=== PATIENT | female | born 1945 | race Caucasian/White ===

== ENCOUNTER → 2017-01-01 | Outpatient (CLI) | payer OTHER ==
[~2017-01-01] MED LIST: ADVAIR 250-501 EACH IH; ADVAIR 2501 DISK W/D PO; AFEDITAB; AFEDITAB CR30 MG PO; AL-MAG HYDROX-S30 M1 PO; ALBUTEROL 0.5ML INH; ALBUTEROL 2.5MG/3ML IH; ALBUTEROL17 GM INH; ALBUTEROL2.5 MG/0.5 IH; ALDACTONE25 MG PO; ALLERGY25 MG PO; AMIODARONE PO; ASPIRIN EC81 M1 PO; ASPIRIN PO; BACTRIM DS TABL1 TA1 PO; BENTYL10 MG PO; BENTYL20 MG PO; BUDESONIDE0.5 MG/2 M IH; CARDIZEM CD120 M1 PO; CARDIZEM30 M2 PO; CARDIZEM30 MG PO; CARVEDILOL12.5 MG PO; CARVEDILOL25 MG PO; CARVEDILOL6.25 MG PO; CELEBREX PO; CHEWABLE ASPIRI81 MG PO; CLEOCIN PO; COLACE PO; COMBIVENT RESPIM4 GM INH; COREG12.5 MG PO; COREG3.125 MG PO; COUMADIN PO; COUMADIN1 MG PO; CYMBALTA PO; DICYCLOMINE HCL10 MG PO; DIGOX0.25 MG PO; DILTIAZEM 24HR120 M1 PO; ELIQUIS5 MG PO; FAMOTIDINE PO; FUROSEMIDE40 MG PO; GABAPENTIN600 MG PO; GLUCOPHAGE XR500 MG PO; HYDRALAZINE HCL25 MG PO; HYDRALAZINE HCL50 MG PO; IMDUR-ER60 MG PO; KCL PO; KEPPRA250 MG PO; LANOXIN125 MCG PO; LASIX PO; LEVAQUIN750 M1 PO; LEVOFLOXACIN500 MG PO; LISINOPRIL10 MG PO; LISINOPRIL20 MG PO; LOPRESSOR PO; LOPRESSOR100 MG PO; LORTAB 101 TAB 10/5 DOB; MAG-OXIDE400 MG PO; METHIMAZOLE10 MG PO; METOPROLOL TAR25 MG PO; NEURONTIN PO; NEURONTIN100 MG PO; NEURONTIN600 MG PO; NOVOLOG7030 SUBQ; NYSTATIN5 ML PO; OMEPRAZOLE20 M1 PO; OMNICEF300 M1 PO; OXYCODON HCL-AP1 TA2 PO; PAIN RELIEF325 MG PO; PAIN RELIEF650 MG PO; PEPCID AC PO; PERCOCET 10/3251 TAB PO; PERCOCET10 PO; PERCOCET5/325 PO; PERFOROMIS20 MCG/2 M IH; PREDNISONE PO; PREDNISONE10 MG PO; PREDNISONE5 M1 PO; PROAIR HFA8.5 GM INH; PROBIOTIC250 MG PO; PROCARDIA XL PO; PROTONIX PO; PULMICORT0.5 MG/21 IH; SPIRIVA18 MCG INH; SUCRALFATE1 G/10 ML PO; SYMBICORT INH; SYNTHROID PO; TAPAZOLE10 MG PO; TOPROL XL 50 MG50 M1 PO; TYLENOL PM PO; TYLENOL325 M1 PO; ULORIC40 MG PO; VASOTEC10 MG PO; VICODIN 5/1 TAB 5/50 PO; ZOFRAN ODT4 M1 PO; ZOFRAN ODT4 MG PO; [UNRECOGNIZED DRUG - OTHER]; [UNRECOGNIZED DRUG - REMARK]
--- NOTE | ~2017-01-01 | CT57 ---
[facility] A Service of [facility] & [facility] / [facility] RADIOLOGY TEXT RESULTS PATIENT: MOHAN CENTENO [facility]: [facility] : 44 UNIT #: [id number] AGE: [address]: Hammad Han MD SEX: F ORDER DR: [id number] [facility] [address] [place], [place] [address] [id number] O MR#: [id number] [facility] #: [id number] NAME: MOHAN CENTENO. : 1945 SEX: F STUDY DATE/TIME: 01/01/2017 10:24 UNIT: [facility] ROOM: STUDY DESCRIPTION: CT Chest Wo Cont Attending Physician: Hammad Han M.D. Ordering Physician: Hammad Han M.D. Primary Care Physician: Emmanuel Atwood M.D. MEDICAL IMAGING REPORT This report is preliminary unless electronic signature is present EXAM CT chest without contrast, 01/01/2017 INDICATION Lung cancer. Shortness of air. Thoracic aortic aneurysm. Right upper lobe pulmonary malignancy. TECHNIQUE CT of the chest without contrast. Coronal and sagittal reconstructions were obtained. Please note the exam was changed to without contrast due to patient's overlying renal insufficiency (GFR 35). This CT exam was performed with one or more of the following radiation dose reduction techniques: automatic exposure control, adjustment of mA and/or kV according to patient size, and iterative reconstruction. COMPARISON Chest radiograph dated 12/04/2016. PET/CT dated 08/07/[address] chest dated 06/28/2016. FINDINGS The right upper lobe mass has decreased in size. This mass has a central cavitation on today's exam. This measures 3.7 cm x 3.2 cm compared to 6.4 cm x 4.7 cm on the prior exam. There are no new pulmonary opacities. There is background emphysema. Central airways are patent. Right upper lobe bronchi remain occluded. There are some borderline enlarged mediastinal lymph nodes. These are all stable in size compared with the prior exam. A precarinal lymph node previously showed FDG avidity. This measures approximately 1.4 cm short axis, unchanged from the prior exam (1.3 cm). [facility] A Service of [facility] & [facility] / [facility] RADIOLOGY TEXT RESULTS PATIENT: MOHAN CENTENO LOCATION: [facility] : 44 UNIT #: [id number] AGE: [address]: Hammad Han MD SEX: F ORDER DR: There is some diffuse aneurysmal enlargement of the descending thoracic aorta. The mid descending thoracic aorta measures up to 5.1 cm, unchanged. The distal thoracic aorta measures up to 5.7 cm, also unchanged. The distal thoracic aorta at the diaphragmatic hiatus measures 4.2 cm, unchanged. There is some low-attenuation thickening of the left adrenal gland which is unchanged. There is a benign cyst in the left kidney. The right kidney is atrophic. No new osseous abnormalities. IMPRESSION 1. Partial response to therapy. The right upper lobe mass has decreased in size and now has some central cavitation. 2. Borderline enlarged mediastinal lymph nodes are either stable to slightly decreased in size. 3. Diffuse fusiform aneurysm of the descending thoracic aorta is unchanged from the prior study. Dictated by... Jj Eli M.D. THIS IS AN ELECTRONICALLY VERIFIED REPORT Jj Eli M.D. at 01/02/2017 8:19 AM JALEN/darrion TD: 01/01/2017 21:31 JOB #: [id number] MEDICAL IMAGING REPORT COPY
[2017-01-01 10:15] LABS: POC - CREATININE 1.53 mg/dL (0.44-1.03)
== END | disposition home or self-care (01) ==
LOC: CCAT 09:08
PROVIDERS: Internal Medicine Medical Oncology
DX: C34.11 Malignant neoplasm of upper lobe, right bronchus or lung (principal); I71.2 Thoracic aortic aneurysm, without rupture
CPT/HCPCS: 71250; 82565

== ENCOUNTER → 2017-03-29 | Outpatient (CLI) | payer OTHER ==
--- NOTE | ~2017-03-29 | CT57 ---
[facility] A Service of [facility] RADIOLOGY TEXT RESULTS PATIENT: MOHAN CENTENO LOCATION: [facility] : 43 UNIT #: [id number] AGE: [address]: Hammad Han MD SEX: F ORDER DR: [id number] [facility] [address] [place], [place] [address] [id number] O MR#: [id number] [facility] #: [id number] NAME: MOHAN CENTENO. : 1945 SEX: F STUDY DATE/TIME: 03/29/2017 9:59 UNIT: [facility] ROOM: STUDY DESCRIPTION: CT Chest Wo Cont Attending Physician: Hammad Han M.D. Ordering Physician: Hammad Han M.D. Primary Care Physician: Emmanuel Atwood M.D. MEDICAL IMAGING REPORT This report is preliminary unless electronic signature is present EXAM CT chest without contrast DATE 03/29/2017 HISTORY 71-year-old female with history of lung cancer with last radiation therapy and chemotherapy treatments in 2014, per patient. Patient states no current complaints. Additional history of congestive heart failure, diabetes, hypertension and COPD. COMPARISON CT chest without contrast 01/01/2017, 06/28/2016. PROCEDURE 5 mm noncontrast axial images through the chest. Sagittal and coronal reformatted images were obtained. Study was originally requested with IV contrast, but IV contrast could not be administered secondary to the patient's impaired renal function (eGFR 38). This CT exam was performed with one or more of the following radiation dose reduction techniques: automatic control, adjustment of mA and/or kV according to patient size, and iterative reconstruction. FINDINGS Posterior right upper lobe mass lesion abutting the major fissure appears slightly diminished in size since 01/01/2017. On today's examination it measures approximately 3.7 x 2.2 cm compared to 3.7 x 3.2 cm previously. It has an eccentric cavitary component. It is significantly smaller when compared to the more remote 06/28/2016 examination, as well. In the coronal plane, it measures 2.8 cm today compared to 4 cm previously. No new pulmonary nodules are identified. Emphysematous changes are present [facility] A Service of [facility] RADIOLOGY TEXT RESULTS PATIENT: MOHAN CENTENO [id number] 43 UNIT #: [id number] AGE: [address]: Hammad Han MD SEX: F ORDER DR: with mild peripheral interstitial fibrosis in bilateral lower lobes and right middle lobe and inferior right upper lobe. Fusiform aneurysmal dilation of the thoracic aorta is redemonstrated, measuring approximately 4.4 cm in proximal descending segment, 5 cm in the mid descending segment, nearly 6 cm in the mid to distal descending segment. The eet-fs-ukjqhe descending thoracic aorta appears larger than on the 06/28/2016 exam where it measured 5.6 cm. The juxtarenal abdominal measures 4.3 cm, unchanged from prior. The descending thoracic aorta is very tortuous. Benign calcified granulomatous changes are present in the left hilum. Enlarged lymph node in the right precarinal region measures 1.5 x 1.2 cm and is not thought to be significantly changed. Other smaller right paratracheal lymph nodes are likewise thought to be stable. Presumed sebaceous cyst within the left anterior chest wall measuring 1 cm. Stable cardiac enlargement with pacemaker placed. Mild coronary artery calcifications noted. Right renal atrophy. Left renal cyst noted. Signs of ventral abdominal hernia repair. Diffuse enlargement of the left adrenal gland, unchanged. Right adrenal gland appears unremarkable. No acute or suspicious osseous abnormalities are identified. IMPRESSION 1. Positive response to therapy in comparison to the 01/01/[address] The right upper lobe lung mass has diminished in size. 2. Mediastinal adenopathy is stable. No new adenopathy. 3. Marked aneurysmal dilation of the descending thoracic aorta and abdominal aorta again noted. The distal descending thoracic aorta appears larger, now measuring 6 cm compared to 5.6 cm on the more remote 06/28/2016 CT chest. Vascular surgery consultation is suggested. 4. Enlargement of the left adrenal gland, unchanged. Adrenal metastatic disease not excluded. This is a stable finding. 5. Advanced emphysema. 6. Stable cardiomegaly. 7. Signs of ventral abdominal hernia repair, right renal atrophy, left renal cyst. Dictated by... Bess Pisano M.D. THIS IS AN ELECTRONICALLY VERIFIED REPORT Bess Pisano M.D. at 03/30/2017 8:27 AM [facility] A Service of [facility] RADIOLOGY TEXT RESULTS PATIENT: MOHAN CENTENO [facility] [id number] : 43 UNIT #: [id number] AGE: [address]: Hammad Han MD SEX: F ORDER DR: PAUL/rupertor TD: 03/29/2017 14:47 JOB #: [id number] MEDICAL IMAGING REPORT Page 1 of 1 COPY
[2017-03-29 10:16] LABS: POC - CREATININE 1.45 mg/dL (0.44-1.03)
== END | disposition home or self-care (01) ==
LOC: CCAT 09:04
PROVIDERS: Internal Medicine Medical Oncology
DX: C34.11 Malignant neoplasm of upper lobe, right bronchus or lung (principal); R59.0 Localized enlarged lymph nodes; I71.2 Thoracic aortic aneurysm, without rupture; E27.8 Other specified disorders of adrenal gland; J43.9 Emphysema, unspecified; N26.1 Atrophy of kidney (terminal); N28.1 Cyst of kidney, acquired; I51.7 Cardiomegaly; Z98.890 Other specified postprocedural states
CPT/HCPCS: 71250; 82565

== ENCOUNTER 2017-04-15 21:26 | Inpatient (IN) | payer OTHER ==
--- NOTE | ~2017-04-15 | CT71 ---
[facility] A Service of [facility] RADIOLOGY TEXT RESULTS PATIENT: MOHAN CENTENO LOCATION: [facility] : 43 UNIT #: [id number] AGE: [address]: Emmanuel Atwood MD SEX: F ORDER DR: [id number] [facility] [address] [place], [place] [address] [id number] I MR#: [id number] Acc #: [id number] NAME: MOHAN CENTENO. : 1945 SEX: F STUDY DATE/TIME: 04/15/2017 2321 UNIT: [facility] ROOM: [facility] STUDY DESCRIPTION: CT Head Wo Contrast Attending Physician: Emmanuel Atwood M.D. Ordering Physician: Lance Jacobs M.D. Primary Care Physician: No Primary Care Physician MEDICAL IMAGING REPORT This report is preliminary unless electronic signature is present EXAM Head CT, 04/15, 2321 hours. INDICATION Increasing confusion and generalized weakness for 2 days. TECHNIQUE Axial images were obtained from the base to the vertex without contrast. This CT exam was performed with one or more of the following radiation dose reduction techniques: automatic exposure control, adjustment of mA and/or kV according to patient size, and iterative reconstruction. COMPARISON Comparison made with 09/11/2016. FINDINGS There is generalized atrophy. Ventricular size and configuration are stable. Bilateral chronic basal ganglia infarcts are seen. Chronic small vessel ischemic changes are present in the white matter. No acute infarct or hemorrhage identified. There are no masses. Atherosclerotic calcifications noted in the carotid siphons. No skull fracture. IMPRESSION No acute abnormalities. Stable exam from 09/11/2016. Dictated by... Paul Thomas Jr., M.D. THIS IS AN ELECTRONICALLY VERIFIED REPORT [facility] A Service of [facility] RADIOLOGY TEXT RESULTS PATIENT: MOHAN CENTENO LOCATION: [facility] : 43 UNIT #: [id number] AGE: [address]: Emmanuel Atwood MD SEX: F ORDER DR: Paul Thomas Jr., M.D. at 04/16/2017 9:14 PM TOMASA/ashley TD: 04/16/2017 09:59 JOB #: [id number] MEDICAL IMAGING REPORT Page 1 of 1 COPY
--- NOTE | ~2017-04-15 | CO ---
Unit #: [id number] #: [id number] Patient: MOHAN CENTENO [id number] [address] [place], [place] [address] [id number] I MR#: [id number] NAME: MOHAN CENTENO ROOM: 555 Age: 71 Sex: F Admission Date: 04/16/2017 : 1945 Attending Physician: Emmanuel Atwood M.D. Consultation Date: 04/16/2017 CONSULTATION REPORT REASON FOR CONSULTATION Renal insufficiency. Thank you very much for asking me to see this patient in consultation again. HISTORY OF PRESENT ILLNESS Ms. Torrey Centeno is a 71-year-old female with a history of chronic kidney disease, stage 3 with creatinine in the 1 to 1.2 range, who presented to the hospital apparently not getting out of bed for the last 3 to 4 days, decreased p.o. intake. Upon admission, note to have creatinine was up to 1.6 with a possible UTI. Started on Rocephin and we were asked to see the patient. She was started on IV fluids as well, normal saline at 75. She apparently had increased confusion with negative CT of the head. She today is alert, but little confused. Daughters at bedside. Mainly, the issues daughter states she has had severe pain and when asking she said well she has had it for months, but the real issue apparently brought in by her for the decreased intake, not getting out of bed, and worsening mental status. The patient states she has chronic shortness of breath, nothing new. No chest pain currently. She denies any nausea, vomiting, or diarrhea. She states she is hungry currently. PAST MEDICAL HISTORY Extensive including chronic kidney disease, stage 3, creatinine in 1 to 2 range most likely; history of diabetes mellitus; history of congestive heart failure with decreased EF of 25%; history of mitral regurg and tricuspid regurg; history of pulmonary hypertension; history of atrial fibrillation, on chronic Coumadin; history of descending thoracic aortic aneurysm; history of peripheral vascular disease; history of hypothyroidism; history of COPD; history of lung CA; history of postherpetic neuralgia; history of ITP; history of irritable bowel syndrome; history of chronic anemia. She is status post AICD, status post hysterectomy, status post multiple ventral hernias. SOCIAL HISTORY She still smokes. Lives with her . No alcohol. ALLERGIES Include adhesive tape, Wellbutrin, Lipitor, naproxen, Lyrica. FAMILY HISTORY Negative for any kidney disease. REVIEW OF SYSTEMS Unit #: [id number] #: [id number] Patient: MOHAN CENTENO As mentioned in the HPI, otherwise negative. MEDICATIONS At home include aspirin 81 mg a day; Percocet p.r.n. for pain; inhalers; Coumadin 1.5 mg a day; Synthroid 88 mcg a day; Aldactone 25 mg a day, which is on hold; Zofran; Lasix 40 mg b.i.d., which is on hold; Combivent inhalers; Coreg 25 mg b.i.d., although that dose was questionable changed to 3.125 mg b.i.d.; Pepcid 20 mg a day; probiotics daily; Uloric normally 80 mg a day, but that dose has been changed to 40 mg a day. PHYSICAL EXAMINATION GENERAL: She is alert, but confused. VITAL SIGNS: T-max 101.5, pulse 66 to 137, blood pressure is 102 to 148 over 70 to 102. HEENT: She is normocephalic and atraumatic. Pupils are equal, round, and reactive to light. Extraocular muscles are intact. Hearing appears to be normal. Mouth clear. No erythema. No exudate. NECK: Supple. No adenopathy. CARDIAC: She is without a rub. She has no S3 or S4. Currently irregular. LUNGS: She has a few wheezes. No rales. No rhonchi. ABDOMEN: Bowel sounds positive. Mild diffuse tenderness. No rebound or guarding. EXTREMITIES: She has no lower extremity swelling. Her pulses are intact in upper and lower extremities. JOINTS: No joint pain or joint swelling. SKIN: No acute rash except for some bruising. : Deferred. DIAGNOSTIC STUDIES LABORATORY RESULTS: Again, creatinine 1.6 yesterday. Today, sodium is 141, potassium 3.5, chloride is 106, bicarb 20, BUN 54, creatinine 1.3, glucose 99, calcium is 8.2, lactic acid 1.3, TSH 2.01. INR is 2.1. Hemoglobin is 12, white count 11,700, platelets 93,000. Her UA shows specific gravity of 1.016, 1+ protein, 2 to 5 rbc's, 100 to 200 wbc's, positive bacteria. Culture is pending. IMAGING STUDIES: CT of the head is negative. Chest x-ray was negative. ASSESSMENT AND PLAN 1. Acute on probable chronic kidney disease, stage 3. Renal function is improving already. The patient most likely had volume depletion as the etiology of her acute renal insufficiency and improving with volume. Certainly, I agree with holding her Aldactone and Lasix for now. Certainly at some point, we will need to re-add that, consider lower dose, depending on her oral intake is, but we will watch for failure, but continue normal saline at 75 mL an hour. We will mildly hydrate. We will check a bladder scan for postvoid residual to make sure she did not have some component of urinary retention. We will add magnesium and phosphorus to a.m. labs ordered in the morning and we will just follow and depending on how she does, depending on any further workup and treatment. Certainly, would avoid all nonsteroidals, OAKLEY-2 inhibitor, long-term PPIs, other contrast dye, and other nephrotoxins. 2. Probable urinary tract infections. Await culture results, on Rocephin. 3. Chronic obstructive pulmonary disease. 4. Diabetes mellitus. 5. History of congestive heart failure with decreased ejection fraction. Again, hold diuretics for now. She does not appear to be in any heart failure at this time. Unit #: [id number] #: [id number] Patient: MOHAN CENTENO 6. Hypertension. Dictated by.Kalie Ansari M.D. KAREN/segun TD: 04/16/2017 15:46 JOB #: [id number] CONSULTATION REPORT Page 1 of 1 X Rosario Ansari MD CONSULTATION REPORT
--- NOTE | ~2017-04-15 | DS ---
Unit #: [id number] #: [id number] Patient: MOHAN CENTENO [id number] [address] [place], [place] [address] [id number] MR#: [id number] NAME: MOHAN CENTENO. ROOM: 555 Age: 71 Sex: F Admission Date: 04/16/2017 : 1945 Discharge Date: 04/20/2017 Attending Physician: Emmanuel Atwood M.D. Primary Care Physician: No Primary Care Physician DISCHARGE SUMMARY PRINCIPAL DISCHARGE DIAGNOSES 1. Acute mental status changes, i.e. delirium secondary to urinary tract infection. 2. Escherichia coli urinary tract infection. 3. Chronic atrial fibrillation. 4. Chronic anticoagulation therapy. 5. Diet controlled type 2 diabetes mellitus. 6. Chronic obstructive pulmonary disease. 7. Chronic systolic congestive heart failure. 8. Hypothyroidism. 9. Coronary artery disease. 10. Peripheral arterial disease. 11. Thoracic aortic aneurysm. 12. Abdominal aortic aneurysm. 13. Non-small cell carcinoma, right upper lobe of the lung. 14. Acute on chronic kidney disease stage 3. 15. Gout. 16. Idiopathic thrombocytopenic purpura. PROCEDURES None. CONSULTANTS Dr. Asnari - Nephrology. REASON FOR HOSPITALIZATION The patient is a 71-year-old white female brought to the emergency room with altered mental status, apparently not been out of bed for three days. In the ER, she was evaluated and had some worsening kidney function, had evidence of UTI and was admitted. On admission, she was afebrile but apparently had a temp of 101.5 at home. Lactic acid was normal. Cardiac enzymes normal. PT/INR was slightly low at 1.9. White count 15.9 with a left shift. Ammonia level, amylase and lipase normal. Magnesium normal. CPK normal. Creatinine 1.3, GFR 31.9. Urinalysis - 3+ leukocytes with 1+ blood, 100-200 white cells per high power field, 4+ bacteria. TSH normal. Patient admitted, started on IV Rocephin. Culture sent. Urine culture grew E. coli sensitive to Rocephin. Switched to cefdinir yesterday. Blood cultures - no growth to date. Coumadin adjusted. Protime therapeutic in the past two days. BMP this morning is normal except for GFR of 56. CBC this morning is normal except for a hemoglobin of 11 and a platelet count of 103,000. Two view chest x-ray yesterday showed some opacity in the lower right thorax but no active disease. Immunofixation sent during this admission showed no abnormal bands. CT scan of the abdomen and pelvis showed no acute findings. There was an uncomplicated Unit #: [id number] #: [id number] Patient: MOHAN CENTENO sigmoid diverticulosis, unchanged thoracic and abdominal aortic aneurysm with a distal descending thoracic aneurysm of nearly 6 cm. Moderate right renal atrophy. Uncomplicated cholelithiasis. Pessary device in place, status post hysterectomy. In any case, the patient is stable. She is on a regular diet. She is being discharged home with: 1. A prescription for cefdinir 300 mg, one p.o. b.i.d. #10. 2. She is on Symbicort 160/4.5 two puffs q.12. 3. Combivent Respimat one puff q.i.d. 4. Zofran ODT 4 mg q.i.d. p.r.n. 5. Coumadin 2 mg p.o. daily. 6. Furosemide 40 mg daily. 7. Pepcid 20 mg daily. 8. Probiotic 250 mg b.i.d. 9. Aspirin, enteric coated, 81 mg daily. 10. Percocet 10/325, one half p.o. q.i.d. p.r.n. for pain. 11. Aldactone 25 mg daily. 12. Synthroid 88 mcg daily. 13. Uloric 80 mg daily. She will have a protime in my office on Sunday, the . She is on a regular diet. She will have an office visit in one week. Dictated by... Emmanuel Atwood M.D. Zakia TD: 04/20/2017 12:22 JOB #: [id number] DISCHARGE SUMMARY Page 1 of 1 X Emmanuel Atwood MD X DISCHARGE SUMMARY
--- NOTE | ~2017-04-15 | CT4 ---
[facility] A Service of [facility] RADIOLOGY TEXT RESULTS PATIENT: MOHAN CENTENO LOCATION: [facility] [id number] : 44 UNIT #: [id number] AGE: [address]: Emmanuel Atwood MD SEX: F ORDER DR: [id number] [facility] [address]. [place], [place] [address] [id number] I MR#: [id number] Acc #: [id number] NAME: MOHAN CENTENO. : 1945 SEX: F STUDY DATE/TIME: 04/17/2017 20:19 UNIT: [facility] ROOM: [facility] STUDY DESCRIPTION: CT Abd and Pelv Wo Cont Attending Physician: Emmanuel Atwood M.D. Ordering Physician: Emmanuel Atwood M.D. Primary Care Physician: Primary Care Physician No MEDICAL IMAGING REPORT This report is preliminary unless electronic signature is present EXAM CT abdomen and pelvis without contrast DATE 04/17/2017 HISTORY New onset confusion, right lower quadrant pain and urinary tract infection for [address] abdomen and pelvis without contrast 10/08/2016. PROCEDURE 5 mm axial images from the lung bases through the lesser trochanters after enteric contrast only was administered. IV contrast not administered. Sagittal and coronal reformatted images were obtained. This CT exam was performed with one or more of the following radiation dose reduction techniques: Automatic exposure control, adjustment of mA and/or kV according to patient size, and iterative reconstruction. FINDINGS ABDOMEN FINDINGS: The distal descending thoracic aorta is tortuous and is aneurysmal up to 6 cm transversely, compared to 5.8 cm on previous exam. The upper abdominal aorta is likewise tortuous. The aorta at the level of the diaphragmatic hiatus measures 4.1 cm, not significantly changed. The immediate infrarenal abdominal aortic segment measures 4.2 cm, unchanged. The [id number] infrarenal abdominal aorta measures 4.2 cm, not significantly changed. There is dense calcific atherosclerosis within the bilateral common iliac arteries. Emphysematous changes are present in the lung bases without consolidation. There are signs of ventral abdominal wall hernia repair without hernia STS. [facility] A Service of [facility] RADIOLOGY TEXT RESULTS PATIENT: MOHAN CENTENO LOCATION: [facility] [id number] : 44 UNIT #: [id number] AGE: [address]: Emmanuel Atwood MD SEX: F ORDER DR: recurrence. Gallstones are present without pericholecystic inflammation or biliary dilation. Noncontrast appearance of the liver, spleen, pancreas, right adrenal are normal. Left adrenal hyperplasia unchanged. Left adrenal gland demonstrates low density and may represent some underlying adenomatous change, as well. There is trace left pleural effusion. Moderately advanced right renal atrophy. Cyst in the posterior left mid kidney measures 2.2 cm (Hounsfield units 5.5). Diverticular changes are present in the descending and sigmoid colon without evidence of acute diverticulitis. There is moderate colonic stool burden. No evidence of high-grade large or small bowel obstruction. No ureteral stone or hydronephrosis is seen. PELVIS FINDINGS: Hysterectomy with pessary device in place. Suspected small enterocele extending to the right of midline posteriorly. Mild anterolisthesis L4 upon L5, mild retrolisthesis L2 upon L3, unchanged. No acute osseous abnormalities are identified. IMPRESSION 1. No acute findings are appreciated within the abdomen or pelvis. The appendix is not discretely visualized but no pericecal inflammation is seen. There is moderate colonic stool burden. 2. Uncomplicated sigmoid diverticulosis without evidence of acute diverticulitis. 3. Thoracic and abdominal aortic aneurysm not thought to be significantly changed. The distal descending thoracic aortic aneurysm measures nearly 6 cm. 4. Trace left pleural effusion. 5. Not mentioned in the body of the report, there is trace fluid in the left paracolic gutter of uncertain etiology. No drainable fluid collection or abscess is seen. 6. Emphysema. 7. Moderate right renal atrophy and left renal cyst. 8. Uncomplicated cholelithiasis. 9. Suspected small enterocele extending to the right of midline posteriorly. Pessary device in place. 10. Hysterectomy. Dictated by... Bess Pisano M.D. THIS IS AN ELECTRONICALLY VERIFIED REPORT Bess Pisano M.D. at 04/18/2017 10:40 AM [facility]/renetta TD: 04/18/2017 03:02 [facility] A Service of [facility] RADIOLOGY TEXT RESULTS PATIENT: MOHAN CENTENO LOCATION: [id number] 43 UNIT #: [id number] AGE: [address]: Emmanuel Atwood MD SEX: F ORDER DR: TIM #: [id number] MEDICAL IMAGING REPORT Page 1 of 1 COPY
--- NOTE | ~2017-04-15 | EKG ---
PATIENT: MOHAN CENTENO UNIT #: [id number] Ventricular Rate: 136 BPM Atrial Rate: 100 BPM QRS Duration: 76 ms Q-T Interval: 352 ms QTC Calculation(Bezet): 529 ms Calculated R [place]: -34 degrees Calculated T [place]: 125 degrees Diagnosis Line: Atrial fibrillation with rapid ventricular Diagnosis Line: response Diagnosis Line: Left axis deviation Diagnosis Line: Low voltage QRS Diagnosis Line: Nonspecific ST and T wave abnormality Diagnosis Line: Abnormal ECG Diagnosis Line: No new changes Diagnosis Line: Confirmed by SANDY MARTÍNEZ MD ([id number]) on Diagnosis Line: 04/16/2017 4:49:26 PM INTERPRETING MD: WANDA
--- NOTE | ~2017-04-15 | CR72 ---
[facility] A Service of [facility] RADIOLOGY TEXT RESULTS PATIENT: MOHAN CENTENO LOCATION: [facility] : 44 UNIT #: [id number] AGE: [address]: Emmanuel Atwood MD SEX: F ORDER DR: [id number] [facility] [address] [facility]. [place], [place] [address] [id number] I MR#: [id number] Acc #: [id number] NAME: MOHAN CENTENO. : 1945 SEX: F STUDY DATE/TIME: 04/15/20172148 UNIT: [facility] ROOM: [facility] STUDY DESCRIPTION: CR Chest Single View Portable Attending Physician: Emmanuel Atwood M.D. Ordering Physician: Lance Jacobs M.D. Primary Care Physician: No Primary Care Physician MEDICAL IMAGING REPORT This report is preliminary unless electronic signature is present EXAM Portable chest, 2148. INDICATION Mental status changes today. Patient incoherent and uncooperative. Patient has cough, congestion, and fever for 2 days. TECHNIQUE AP portable chest x-ray compared with 12/04/2016. COMPARISON Comparison is also made with chest CT from 03/29/2017. FINDINGS Patient is rotated on the current study. Heart remains enlarged. Again seen is massive dilatation and tortuosity of the thoracic aorta. No acute infiltrates are identified. There is no pneumothorax. Granulomatous calcification is noted in the left hilum. IMPRESSION No acute findings in the chest. Redemonstrated is a massively dilated thoracic aorta which is also tortuous. Please see the recent prior chest CT report from 03/29/2017. Dictated by... Paul Thomas Jr., M.D. THIS IS AN ELECTRONICALLY VERIFIED REPORT Paul Thomas Jr., M.D. at 04/16/2017 9:13 PM ELIASK/ashley [facility] A Service of [facility] RADIOLOGY TEXT RESULTS PATIENT: MOHAN CENTENO [id number] UNIT #: [id number] AGE: [address]: Emmanuel Atwood MD SEX: F ORDER DR: TD: 04/16/2017 09:20 JOB #: [id number] MEDICAL IMAGING REPORT Page 1 of 1 COPY
--- NOTE | ~2017-04-15 | HP ---
Unit #: [id number] #: [id number] Patient: MOHAN CENTENO [id number] [address] [place], [place] [address] [id number] I MR#: [id number] NAME: MOHAN CENTENO. ROOM: 555 Age: 71 Sex: F Admission Date: 04/16/2017 : 1945 Attending Physician: Emmanuel Atwood M.D. Primary Care Physician: No Primary Care Physician HISTORY AND PHYSICAL HISTORY OF PRESENT ILLNESS 71-year-old white female who is a poor historian, generally speaking. Apparently, she was brought to the emergency room by EMS after having altered mental status and had not gotten out of bed for three days, according to her . In the ER, she was evaluated and had some worsening kidney function and evidence of a UTI and was admitted for same. She was febrile there at 101.5, had an elevated white count. Lactic acid was normal. The rest of her labs were fairly unremarkable. The patient is arousable, complaining of chills this morning. She is oriented to person and place but not time, which I don't think is probably unusual for this patient in any regards. ALLERGIES She has stated allergies to adhesive tape, Wellbutrin, Lipitor, Naprosyn, Lyrica. MEDICATIONS Meds prior to admission unknown but include: 1. Aspirin. 2. Percocet. 3. Symbicort. 4. Coumadin. 5. Synthroid. 6. Aldactone. 7. Zofran. 8. Furosemide. 9. Combivent. 10. Coreg. 11. Uloric. PAST MEDICAL HISTORY 1. Chronic A-fib. 2. Sick sinus syndrome. 3. Permanent pacemaker. 4. Chronic anticoagulation therapy. 5. Chronic systolic CHF. 6. Severe left ventricular dysfunction. 7. Automatic implantable cardioverter defibrillator. 8. Coronary artery disease. 9. Thoracic aortic aneurysm. 10. Abdominal aortic aneurysm. 11. Type 2 diabetes mellitus. 12. Hypothyroidism. 13. COPD. Unit #: [id number] #: [id number] Patient: MOHAN CENTENO 14. Tobacco abuse. 15. Postherpetic neuralgia. 16. ITP. 17. Hypertension. 18. Chronic anemia. 19. Irritable bowel syndrome. 20. Non-small cell CA of the right upper lobe. PAST SURGICAL HISTORY 1. AICD. 2. Pacemaker. 3. Hysterectomy. 4. Bilateral carpal tunnel release. 5. Multiple ventral hernia repairs. 6. Left inguinal hernia repair. SOCIAL HISTORY , nondrinker. No street drug use. Smokes two packs of cigarettes daily. FAMILY HISTORY Noncontributory. PHYSICAL EXAMINATION VITAL SIGNS: Again, her temperature was 101.5 in the emergency room, pulse is 137 now 88, respirations 28 now 18, blood pressure was 121/101 now 114/78. O2 sat was 94% in the ER but for some reason she is on O2 at 97% now at 2 L. HEENT: Unremarkable. NECK: Supple without JVD, bruits, adenopathy or thyromegaly. CHEST: Diffusely decreased breath sounds but clear to auscultation. HEART: Irregularly irregular without an S3 gallop or murmur appreciated. ABDOMEN: Soft, nondistended, nontender with positive bowel sounds and no hepatosplenomegaly. EXTREMITIES: No clubbing, cyanosis or edema. /RECTAL: Deferred. NEUROLOGICAL: No focal deficits. DIAGNOSTIC STUDIES LABORATORY: Cardiac enzymes normal x2 sets. PT/INR 1.8, PTT 36.9, white count 15.9 with a left shift. Lactic acid normal, ammonia normal. Amylase and lipase normal, magnesium normal. CPK normal. Sodium 134, BUN 63, creatinine 1.6, GFR 31.9. Urinalysis - 3+ leukocytes, 1+ blood, 100-200 WBCs per high power field, 4+ bacteria. TSH within normal limits. IMPRESSION 1. Delirium. 2. Urinary tract infection. 3. Acute on chronic kidney disease. 4. Gout. 5. Chronic systolic congestive heart failure. 6. Chronic atrial fibrillation. 7. Sick sinus syndrome. 8. Status post automatic implantable cardioverter defibrillator Unit #: [id number] #: [id number] Patient: MOHAN CENTENO permanent pacemaker. 9. Subtherapeutic protime. 10. Thoracic aortic aneurysm. 11. Abdominal aortic aneurysm. 12. Chronic obstructive pulmonary disease. 13. Hypothyroidism. 14. History of idiopathic thrombocytopenic purpura. 15. Peripheral arterial disease. 16. Coronary artery disease. 17. Type 2 diabetes mellitus. 18. History of non-small cell carcinoma of the right lung. PLAN Urine culture, IV fluids, IV antibiotics. Coreg as home Med Rec. Increase dose of Coumadin, cover with Lovenox. Nephrology has been consulted for the worsening renal function. She has been started on normal saline at 75 mL/hour. Will hold her diuretics and follow her labs. Dictated by Emmanuel Atwood M.D. STACEY/emily TD: 04/16/2017 08:14 JOB #: [id number] HISTORY AND PHYSICAL Page 1 of 1 X Emmanuel Atwood MD X HISTORY AND PHYSICAL
--- NOTE | ~2017-04-15 | CR63 ---
[facility] A Service of [facility] RADIOLOGY TEXT RESULTS PATIENT: MOHAN CENTENO LOCATION: [facility] 555-01 : 44 UNIT #: [id number] AGE: [address]: Emmanuel Atwood MD SEX: F ORDER DR: [id number] [facility] [address] [facility]. [place], [place] [address] [id number] I MR#: [id number] Acc #: [id number] NAME: MOHAN CENTENO. : 1945 SEX: F STUDY DATE/TIME: 04/18/2017 14:22 UNIT: [facility] ROOM: [facility] STUDY DESCRIPTION: CR Chest 2 View Attending Physician: Emmanuel Atwood M.D. Ordering Physician: Emmanuel Atwood M.D. Primary Care Physician: No Primary Care Physician MEDICAL IMAGING REPORT This report is preliminary unless electronic signature is present EXAM Two-view chest HISTORY Chest pain, weakness since 04/16/2017. History of UTI. COMPARISON Portable chest 04/15/2017 FINDINGS Two views of the chest demonstrates moderate lung volumes. Opacity is seen over the lower right thorax at the CP angle. It is unclear whether this represents overlying soft tissue as the patient's hand appears to project in this region. This could represent a developing pleural effusion. Mid and upper lung zones are clear. Stable cardiomegaly. Marked tortuosity of the aorta suggesting atherosclerotic changes and possible aneurysmal disease. Recent chest CT did confirm diffuse thoracic aneurysm. Single lead pacemaker in position unchanged. No pneumothorax. No definite acute airspace disease or consolidation. Dictated by... Aicha Gutierrez M.D. THIS IS AN ELECTRONICALLY VERIFIED REPORT Aicha Gutierrez M.D. at 04/19/2017 2:43 PM Dev TD: 04/18/2017 16:04 JOB #: [id number] MEDICAL IMAGING REPORT Page 1 of 1 COPY
[~2017-04-15 21:26] MED LIST changes: -LASIX PO; -OMNICEF300 M1 PO
[2017-04-15 22:57] LABS: BASOPHIL# 0.1 X10e3 (0-0.3); BASOPHIL% 0.4 % (0-2.5); EOSINOPHIL% 0.1 % (0.0-7.0); HEMATOCRIT 42.4 % (35.0-45.0); HEMOGLOBIN 13.3 gm/dL (12.0-16.0); LYMPHOCYTE# 0.6 X10e3 (1.0-3.5); LYMPHOCYTE% 3.6 % (17.0-45.0); MEAN CELL VOLUME 89.2 FL (83-96); MEAN CORPUSCULAR HEMOGLOBIN 28.1 PG (28-34); MEAN CORPUSCULAR HGB CONC 31.4 g/dL (30-36); MEAN PLATELET VOLUME 8.6 FL (6.5-11.5); MONOCYTE# 1.7 X10e3 (0-1.0); MONOCYTE% 10.4 % (3.0-12.0); NEUTROPHIL# 13.6 X10e3 (1.5-7.1); NEUTROPHIL% 85.5 % (40-75); PLATELET COUNT 140 X10e3 (140-420); RED BLOOD COUNT 4.75 X10e (3.90-5.30); WHITE BLOOD COUNT 15.9 X10e3 (4.0-10.5)
[2017-04-15 22:58] LABS: INR 1.8; PARTIAL THROMBOPLASTIN TIME 36.9 SECONDS (23.5-31.3); PROTHROMBIN TIME (PATIENT) 19.4 SECONDS (10.0-11.7)
[2017-04-15 23:00] LABS: DIFF IND YES
[2017-04-15 23:19] LABS: PLATELET ESTIMATE NORMAL (NORMAL)
[2017-04-15 23:51] LABS: URINE SOURCE CLEAN CATCH
[2017-04-15 23:59] LABS: URINE APPEARANCE CLOUDY; URINE BILIRUBIN NEG (NEG); URINE BLOOD 1+ (NEG); URINE COLOR YELLOW; URINE GLUCOSE NEG (NEG); URINE KETONE NEG (NEG); URINE LEUKOCYTE ESTERASE 2+ (NEG); URINE NITRATE NEG (NEG); URINE PROTEIN 1+ (NEG); URINE SPECIFIC GRAVITY 1.016 (1.003-1.035)
[2017-04-16 00:01] LABS: CULTURE INDICATED? YES; URINE BACTERIA AUWI 4+ (NEGATIVE); URINE SQUAMOUS EPITHELIAL CELL NONE SEEN /[HPF]; UWBCS1 AUWI 100-200 (0-5)
[2017-04-16 00:05] LABS: ALBUMIN SERUM 3.1 g/dL (3.5-5.0); BILIRUBIN, DIRECT 0.1 mg/dL (0.0-0.2); BILIRUBIN,INDIRECT 0.6 mg/dL (0.0-0.9); BILIRUBIN,TOTAL 0.7 mg/dL (0.2-2.0); BUN/CREATININE RATIO 39.37; CALCIUM SERUM 8.1 mg/dL (8.4-10.2); CREATININE SERUM 1.6 mg/dL (0.6-1.4); GLOM FILT RATE Estimated 31.9 mL/min (>60); MAGNESIUM 2.1 mg/dL (1.6-3.0); PHOSPHOROUS 4.6 mg/dL (2.5-4.6); POTASSIUM 3.7 mmol/L (3.5-5.1); PROTEIN TOTAL SERUM 6.7 g/dL (6.0-8.3)
[2017-04-16 00:35] LABS: POC - CKMB <1.0 ng/mL (0.0-7.9); POC - TROPONIN <0.05 ng/mL (<=0.05)
[2017-04-16 01:01] LABS: POC - CKMB <1.0 ng/mL (0.0-7.9); POC - TROPONIN <0.05 ng/mL (<=0.05)
[2017-04-16 09:53] LABS: HEMATOCRIT 38.1 % (35.0-45.0); MEAN CELL VOLUME 89.7 FL (83-96); MEAN CORPUSCULAR HEMOGLOBIN 28.2 PG (28-34); MEAN CORPUSCULAR HGB CONC 31.5 g/dL (30-36); MEAN PLATELET VOLUME 8.1 FL (6.5-11.5); RED BLOOD COUNT 4.25 X10e (3.90-5.30); RED CELL DISTRIBUTION WIDTH 14.1 % (11.0-15.5); WHITE BLOOD COUNT 11.7 X10e3 (4.0-10.5)
[2017-04-16 10:03] LABS: INR 2.1; PROTHROMBIN TIME (PATIENT) 22.7 SECONDS (10.0-11.7)
[2017-04-16 10:20] LABS: BUN/CREATININE RATIO 41.53; CALCIUM SERUM 8.2 mg/dL (8.4-10.2); CREATININE SERUM 1.3 mg/dL (0.6-1.4); POTASSIUM 3.5 mmol/L (3.5-5.1)
[2017-04-17 06:31] LABS: INR 3.8
[2017-04-17 06:32] LABS: HEMATOCRIT 32.9 % (35.0-45.0); HEMOGLOBIN 10.5 gm/dL (12.0-16.0); MEAN CELL VOLUME 88.9 FL (83-96); MEAN CORPUSCULAR HEMOGLOBIN 28.3 PG (28-34); MEAN CORPUSCULAR HGB CONC 31.8 g/dL (30-36); MEAN PLATELET VOLUME 8.4 FL (6.5-11.5); PROTHROMBIN TIME (PATIENT) 41.4 SECONDS (10.0-11.7); RED BLOOD COUNT 3.7 X10e (3.90-5.30); RED CELL DISTRIBUTION WIDTH 14.2 % (11.0-15.5); WHITE BLOOD COUNT 7.4 X10e3 (4.0-10.5)
[2017-04-17 07:08] LABS: BUN/CREATININE RATIO 28.33; CREATININE SERUM 1.2 mg/dL (0.6-1.4); GLOM FILT RATE Estimated 45.1 mL/min (>60); MAGNESIUM 1.9 mg/dL (1.6-3.0); PHOSPHOROUS 2.3 mg/dL (2.5-4.6); POTASSIUM 3.5 mmol/L (3.5-5.1)
[2017-04-17 16:57] LABS: CREATININE,RANDOM URINE 64 mg/dL; TOTAL PROTEIN,RANDOM URINE 48 mg/dl (<10)
[2017-04-18 06:24] LABS: BASOPHIL% 0.7 % (0-2.5); EOSINOPHIL# 0.1 X10e3 (0-0.7); EOSINOPHIL% 1.3 % (0.0-7.0); HEMATOCRIT 32.2 % (35.0-45.0); HEMOGLOBIN 10.1 gm/dL (12.0-16.0); LYMPHOCYTE# 0.3 X10e3 (1.0-3.5); MEAN CELL VOLUME 89.7 FL (83-96); MEAN CORPUSCULAR HEMOGLOBIN 28.2 PG (28-34); MEAN CORPUSCULAR HGB CONC 31.5 g/dL (30-36); MONOCYTE# 0.8 X10e3 (0-1.0); MONOCYTE% 13.5 % (3.0-12.0); NEUTROPHIL# 4.4 X10e3 (1.5-7.1); NEUTROPHIL% 78.5 % (40-75); PLATELET COUNT 79 X10e3 (140-420); RED BLOOD COUNT 3.59 X10e (3.90-5.30); RED CELL DISTRIBUTION WIDTH 13.9 % (11.0-15.5); WHITE BLOOD COUNT 5.6 X10e3 (4.0-10.5)
[2017-04-18 06:25] LABS: DIFF IND NO
[2017-04-18 06:36] LABS: INR 2.5; PROTHROMBIN TIME (PATIENT) 27.5 SECONDS (10.0-11.7)
[2017-04-18 07:13] LABS: ALBUMIN SERUM 2.4 g/dL (3.5-5.0); BILIRUBIN,TOTAL 0.4 mg/dL (0.2-2.0); CALCIUM SERUM 8.1 mg/dL (8.4-10.2); GLOM FILT RATE Estimated 56.3 mL/min (>60); MAGNESIUM 1.7 mg/dL (1.6-3.0); PHOSPHOROUS 2.5 mg/dL (2.5-4.6); POTASSIUM 4.4 mmol/L (3.5-5.1); PROTEIN TOTAL SERUM 5.5 g/dL (6.0-8.3); URIC ACID 3.2 mg/dL (2.6-7.2)
[2017-04-19 06:38] LABS: HEMATOCRIT 32.5 % (35.0-45.0); HEMOGLOBIN 10.3 gm/dL (12.0-16.0); MEAN CELL VOLUME 88.6 FL (83-96); MEAN CORPUSCULAR HEMOGLOBIN 28.2 PG (28-34); MEAN CORPUSCULAR HGB CONC 31.8 g/dL (30-36); MEAN PLATELET VOLUME 8.7 FL (6.5-11.5); RED BLOOD COUNT 3.66 X10e (3.90-5.30); RED CELL DISTRIBUTION WIDTH 13.7 % (11.0-15.5); WHITE BLOOD COUNT 4.6 X10e3 (4.0-10.5)
[2017-04-19 06:54] LABS: INR 2.4; PROTHROMBIN TIME (PATIENT) 26.3 SECONDS (10.0-11.7)
[2017-04-19 07:32] LABS: CALCIUM SERUM 8.4 mg/dL (8.4-10.2); CREATININE SERUM 1.2 mg/dL (0.6-1.4); GLOM FILT RATE Estimated 45.1 mL/min (>60); POTASSIUM 4.1 mmol/L (3.5-5.1)
[2017-04-20 05:56] LABS: HEMATOCRIT 34.9 % (35.0-45.0); MEAN CELL VOLUME 88.8 FL (83-96); MEAN CORPUSCULAR HEMOGLOBIN 28.1 PG (28-34); MEAN CORPUSCULAR HGB CONC 31.6 g/dL (30-36); MEAN PLATELET VOLUME 8.5 FL (6.5-11.5); RED BLOOD COUNT 3.93 X10e (3.90-5.30); RED CELL DISTRIBUTION WIDTH 13.6 % (11.0-15.5); WHITE BLOOD COUNT 5.7 X10e3 (4.0-10.5)
[2017-04-20 06:38] LABS: CALCIUM SERUM 8.7 mg/dL (8.4-10.2); GLOM FILT RATE Estimated 56.3 mL/min (>60)
[2017-04-20] MEDS ORDERED: LASIX PO (07:50)
[2017-04-20] MEDS ORDERED: COUMADIN PO (07:58)
[2017-04-20] MEDS ORDERED: OMNICEF300 M1 PO (07:59)
== END 2017-04-20 09:28 | disposition home or self-care (01) | DRG 689 ==
LOC: CED 21:26 → CEDOF 04-16 00:57 → CED 04-16 01:03 → CEDOF 04-16 01:03 → C5B 04-16 02:23
PROVIDERS: Emergency Medicine; Internal Medicine; Internal Medicine Nephrology
DX: N39.0 Urinary tract infection, site not specified (principal); G92 Toxic encephalopathy; N17.9 Acute kidney failure, unspecified; D69.3 Immune thrombocytopenic purpura; I48.2 Chronic atrial fibrillation; I13.0 Hypertensive heart and chronic kidney disease with heart failure and stage 1 through stage 4 chronic kidney disease, or unspecified chronic kidney disease; I50.22 Chronic systolic (congestive) heart failure; N18.3 Chronic kidney disease, stage 3 (moderate); B02.29 Other postherpetic nervous system involvement; I42.9 Cardiomyopathy, unspecified; C34.11 Malignant neoplasm of upper lobe, right bronchus or lung; B96.20 Unspecified Escherichia coli [E. coli] as the cause of diseases classified elsewhere; E11.9 Type 2 diabetes mellitus without complications; J44.9 Chronic obstructive pulmonary disease, unspecified; E03.9 Hypothyroidism, unspecified; I25.10 Atherosclerotic heart disease of native coronary artery without angina pectoris; I73.9 Peripheral vascular disease, unspecified; I71.2 Thoracic aortic aneurysm, without rupture; I71.4 Abdominal aortic aneurysm, without rupture; M10.9 Gout, unspecified; Z88.8 Allergy status to other drugs, medicaments and biological substances; Z79.82 Long term (current) use of aspirin; Z79.01 Long term (current) use of anticoagulants; Z95.810 Presence of automatic (implantable) cardiac defibrillator; K58.9 Irritable bowel syndrome, unspecified; F17.210 Nicotine dependence, cigarettes, uncomplicated; Z90.710 Acquired absence of both cervix and uterus; R80.9 Proteinuria, unspecified; I27.2 Other secondary pulmonary hypertension; I08.1 Rheumatic disorders of both mitral and tricuspid valves
CPT/HCPCS: 36415; 51701; 70450; 71010; 71020; 74176; 80048; 80053; 80076; 81003; 82140; 82150; 82550; 82553; 82570; 82947; 83605; 83690; 83735; 84100; 84156; 84443; 84484; 84550; 85025; 85027; 85610; 85730; 86334; 87040; 87086; 87088; 87186; 93005; 94640; 94760; 96360; 96361; 99291; J0696; J1650; J1956

== ENCOUNTER → 2017-07-09 | Outpatient (CLI) | payer OTHER ==
[~2017-07-09] MED LIST changes: +LASIX PO; +OMNICEF300 M1 PO
--- NOTE | ~2017-07-09 | CT57 ---
[facility] A Service of [facility] RADIOLOGY TEXT RESULTS PATIENT: MOHAN CENTENO [facility] UNIT #: [id number] AGE: [address]: Hammad Han MD SEX: F ORDER DR: [id number] [facility] [address] [facility]. [place], [place] [address] [id number] O MR#: [id number] [facility] #: [id number] NAME: MOHAN CENTENO. : 1945 SEX: F STUDY DATE/TIME: 07/09/2017 11:17 UNIT: [facility] ROOM: STUDY DESCRIPTION: CT Chest Wo Cont Attending Physician: Hammad Han M.D. Referring Physician: Hammad Han M.D. Ordering Physician: Hammad Han M.D. Primary Care Physician: Emmanuel Atwood M.D. MEDICAL IMAGING REPORT This report is preliminary unless electronic signature is present EXAM CT chest without contrast. HISTORY This is a lung cancer follow up. Exam is requested for surveillance for metastatic disease. Patient reports cough for 2 weeks. She was diagnosed with lung cancer July 2016, treated with chemotherapy and radiation in December of 2016. TECHNIQUE Axial CT images were obtained from the thoracic inlet through the dome of the diaphragm. No intravenous contrast material was administered. This CT exam was performed with one or more of the following radiation dose reduction techniques: automatic exposure control, adjustment of mA and/or kV according to patient size, and iterative reconstruction. FINDINGS This patient has an area of developing fibrotic change within the right upper lobe which measures up to 3.5 x 1.4 cm. Previously this same area measured 3.7 x 1.9 cm. This would be characteristic of response to therapy. No new pulmonary nodules or masses are identified. Patient has background emphysematous changes. Thyroid gland is somewhat enlarged and heterogeneous. Certainly does not appear significantly changed when compared to June 2013. Trachea and esophagus appear unremarkable. There is no pleural or pericardial effusion. This patient has extensive, aneurysmal dilatation of the thoracic aorta. The ascending thoracic aorta is ectatic measuring up to about 4 cm. This is probably not significantly changed when compared to March 2017 and is also probably not significantly changed when compared to June 2013. There is marked aneurysmal dilatation of the descending thoracic aorta. Proximal descending thoracic aorta measures 4.4 cm, [facility] A Service of [facility] RADIOLOGY TEXT RESULTS PATIENT: MOHAN CENTENO LOCATION: [facility] : 44 UNIT #: [id number] AGE: [address]: Hammad Han MD SEX: F ORDER DR: previously in 2012 it measured 4.2 cm. Proximal to mid descending thoracic aorta measures about 4.8 cm. Previously in the same area it measured about 4.2 cm. Distal descending thoracic aorta at the level of hiatus measures up to 5.9 cm. Large volume of intraluminal thrombus is seen. Alternatively this could reflect a dissection flap. This would be better assessed with contrast-enhanced study. The appearance of the aorta is stable when compared to March 2017. It certainly has significantly increased when compared to June 2013, when it only measured about 4.4 cm. Images through the upper abdomen demonstrate an atrophic right kidney and left renal cyst. There are changes of prior ventral hernia repair with mesh. There is also aneurysmal dilatation of the abdominal aorta which measures up to 4.3 cm at the level of the renal arteries. Previously it measured about 3.3 cm in June 2013. Again, there is either intraluminal mural thrombus or dissection flap present which is incompletely evaluated on this study in the absence of intravenous contrast material. The main pulmonary artery is enlarged at 3.4 cm. Left adrenal gland appears somewhat bulky but is unchanged compared to 2012. Review of bony windows does not demonstrate any aggressive osseous abnormalities. IMPRESSION 1. Findings are characteristic of response to therapy. I do not see any convincing evidence of recurrent or residual disease. There is an area of evolving fibrotic change seen within the right upper lobe measuring up to about 3.5 x 1.4 cm, which has actually diminished in size when compared to prior exam and again is felt to represent postradiation change. No new suspicious areas are identified on today's examination. 2. Aneurysmal dilatation of the thoracic aorta and abdominal aorta as noted above. Please note there has been interval increase in size of the distal descending thoracic aorta and abdominal aorta when compared to June 2013, as was discussed on prior examination. Vascular surgery consultation is recommended. On today's exam as well as on the exam from March 2017, the patient appears to have either extensive intraluminal mural thrombus or potentially even a dissection which is incompletely evaluated on this unenhanced CT. Again the appearance is stable when compared to March 2017. Please see the body of report for any other additional incidental findings. Dictated by... Charmaine Hernandez M.D. THIS IS AN ELECTRONICALLY VERIFIED REPORT Charmaine Hernandez M.D. at 07/11/2017 8:10 AM AFF/gz TD: 07/10/2017 08:52 JOB #: [id number] [facility] A Service of [facility] RADIOLOGY TEXT RESULTS PATIENT: MOHAN CENTENO LOCATION: [facility] : 44 UNIT #: [id number] AGE: [address]: Hammad Han MD SEX: F ORDER DR: MEDICAL IMAGING REPORT Page 1 of 1 COPY
[2017-07-09 11:01] LABS: POC - CREATININE 1.9 mg/dL (0.44-1.03)
== END | disposition home or self-care (01) ==
LOC: CCAT 09:00
PROVIDERS: Internal Medicine Medical Oncology
DX: Z08 Encounter for follow-up examination after completed treatment for malignant neoplasm (principal); I71.2 Thoracic aortic aneurysm, without rupture; I71.4 Abdominal aortic aneurysm, without rupture; Z85.118 Personal history of other malignant neoplasm of bronchus and lung
CPT/HCPCS: 71250; 82565